=== PATIENT | male | born 1960 | race Caucasian/White ===

== ENCOUNTER 2022-05-28 09:13 | Outpatient (CLI) | payer BC | END 2022-05-28 09:14 | disposition home or self-care (01) | LOC: SCSRAD 09:13 | PROVIDERS: ATTEND Family Medicine | DX: R05.3 Chronic cough (principal) | CPT/HCPCS: 71046 ==

== ENCOUNTER 2023-01-27 10:47 | Outpatient (CLI) | payer BC | END 2023-01-27 10:48 | disposition home or self-care (01) | LOC: SCSRAD 10:47 | PROVIDERS: ATTEND Family Medicine | DX: R06.02 Shortness of breath (principal); I51.7 Cardiomegaly | CPT/HCPCS: 71046 ==